=== PATIENT | male | born 1985 | race Caucasian/White ===

== ENCOUNTER 2019-01-30 05:38 | Outpatient (CLI) | payer BC ==
[~2019-01-30] VITALS: Ht 188 cm; Wt 140.6 kg
[2019-01-30] MEDS ORDERED: OMEP20TA7 PO (14:34)
[2019-01-30] MEDS ORDERED: PARO10TA81 PO (14:34)
== END 2019-01-30 14:36 | disposition home or self-care (01) ==
LOC: PREOP 05:38
PROVIDERS: ATTEND Surgery
DX: Z01.818 Encounter for other preprocedural examination (principal)

== ENCOUNTER → 2019-02-06 | Day surgery (SDC) | payer BC ==
[~2019-02-06] VITALS: Ht 188 cm; Wt 140.6 kg
[~2019-02-06] MED LIST: ACETAMINOPHEN 325 MG TABLET PO PRN; HURRICAINE EXT TUBE (BENZOCAINE) ONE; HURRICAINE EXT TUBE (BENZOCAINE) XX PRN; HYDROcodone/APAP 5 MG/325 MG (LORTAB) TAB PO PRN; LIDOCAINE JELLY 2% 6 ML SYRINGE MM PRN; LIDOCAINE JELLY 2% 6 ML SYRINGE ONE; MIDAZOLAM 2 MG/2 ML (VERSED) VIAL IVP ONE; MIDAZOLAM 2 MG/2 ML (VERSED) VIAL ONE; NS IV 500 ML 500 ML IV PRN; NS IV 500 ML 500 ML ONE; OMEP20TA7 PO; ONDANSETRON 4 MG/2 ML (SDV) Z0FRAN IVP PRN; PARO10TA81 PO; fentaNYL INJECTION 100 MCG/2 ML AMP IVP ONE; fentaNYL INJECTION 100 MCG/2 ML AMP ONE; morphine INJ 10 MG/ML 1ML (SYR OR VIAL) IVP PRN
--- OUTSIDE RECORDS SUMMARY | 2019-02-06 13:01 | XMS REPORT | Continuity of Care Document ---
Author Organization Unknown Address Unknown Allergies Active Description Code Type Severity Reaction Onset Reported/Identified Relationship to Patient Clinical Status Yes NO KNOWN DRUG ALLERGIES UNKNOWN NO KNOWN DRUG ALLERG Yes No Known Drug Allergies [id number] Drug Allergy Unknown N/A 01/30/2019 Medications There is no data. Problems Date Dx Coded Attending Type Code Diagnosis Diagnosed By 12/11/2018 CARLOS MANUEL MENA V70.0 ROUTINE GENERAL MEDICAL EXAMINATION AT A HEALTH CARE FACILITY 12/11/2018 CARLOS MANUEL MENA Z00.00 ENCOUNTER FOR GENERAL ADULT MEDICAL EXAMINATION WITHOUT ABNORMAL FINDINGS 12/11/2018 CARLOS MANUEL MENA 461.9 ACUTE SINUSITIS, UNSPECIFIED 12/11/2018 CARLOS MANUEL MENA J01.90 ACUTE SINUSITIS, UNSPECIFIED 12/11/2018 CARLOS MANUEL MENA V70.0 ROUTINE GENERAL MEDICAL EXAMINATION AT A HEALTH CARE FACILITY 12/11/2018 CARLOS MANUEL MENA Z00.00 ENCOUNTER FOR GENERAL ADULT MEDICAL EXAMINATION WITHOUT ABNORMAL FINDINGS 12/11/2018 CARLOS MANUEL MENA 461.9 ACUTE SINUSITIS, UNSPECIFIED 12/11/2018 CARLOS MANUEL MENA J01.90 ACUTE SINUSITIS, UNSPECIFIED 12/11/2018 CARLOS MANUEL MENA V70.0 ROUTINE GENERAL MEDICAL EXAMINATION AT A HEALTH CARE FACILITY 12/11/2018 CARLOS MANUEL MENA Z00.00 ENCOUNTER FOR GENERAL ADULT MEDICAL EXAMINATION WITHOUT ABNORMAL FINDINGS 01/30/2019 ELOY JUNG, ROCIO Ot Z01.818 ENCOUNTER FOR OTHER PREPROCEDURAL EXAMIN Procedures There is no data. Results Test Result Range BMP - 12/11/18 16:41 Anion Gap 14 6-14 BUN 14 mg/dL 5-25 Calcium 9.5 mg/dL 8.3-10.4 Chloride 107 mmol/L 95-114 CO2 22 mEq/L 22-33 Creat 1.16 mg/dL 0.50-1.50 eGFR 72 mL/min/1.73m2 >59 Glucose 122 mg/dL 70-110 Osmo 289 280-295 Potassium 4.1 mmol/L 3.5-5.3 Sodium 139 mmol/L 134-148 Lipid Panel - 12/11/18 16:41 C/HDL 5.9 3.7-6.7 Cholesterol 188 mg/dL 100-240 HDL 32 mg/dL 30-85 LDL-Calculated 123 mg/dL 0-100 Trig 167 mg/dL 35-160 VLDL 33 mg/dL 0-42 Encounters ACCT No. Visit Date/Time Discharge Status Pt. Type Provider Facility Loc./Unit Complaint [id number] 12/11/2018 17:11:00 12/11/2018 23:59:00 DIS Outpatient CARLOS MANUEL MENA [id number] 06/13/2017 12:33:00 06/13/2017 23:59:00 DIS Outpatient RADHA JASMINE [id number] 01/30/2019 05:38:00 01/30/2019 14:36:00 DIS Outpatient ROCIO LYONS MD [facility] PREOP EGD [id number] 04/25/2013 14:03:00 04/25/2013 23:59:59 CLS Outpatient [id number] 02/06/2019 12:55:00 ACT Outpatient ROCIO LYONS MD [facility] ENDO DYSPHAGIA [id number] 12/11/2018 17:11:00 Document Registration
--- NOTE | 2019-02-06 13:03 | Progress Note-Pre Operative ---
Pre-Operative Progress Note H&P Reviewed The H&P was reviewed, patient examined and no changes noted. Date Seen by Provider: Feb 06, 2019 Time Seen by Provider: 13:00 Date H&P Reviewed: Feb 06, 2019 Time H&P Reviewed: 13:00 Pre-Operative Diagnosis: GERD, regurg ROCIO LYONS MD Feb 06, 2019 13:03
--- NOTE | 2019-02-06 13:03 | Conscious Sedation/ASA ---
Conscious Sedation Pre-Proced Time 13:00 ASA Score 2 For ASA 3 and 4: Consider anesthesia and medical clearance. Also, for patients with a history of failed moderate sedation consider anesthesia. Airway Lungs Heart ASA score ASA 1: a normal healthy patient ASA 2: a patient with a mild systemic disease (mid diabetes, controlled hypertension, obesity ASA 3: a patient with a severe systemic disease that limits activity (angina, COPD, prior Myocardial infarction) ASA 4: a patient with an incapacitating disease that is a constant threat to life (CHF, renal failure) ASA 5: a moribund patient not expected to survive 24 hrs. (ruptured aneurysm) ASA 6: a declared brain- patient whose organs are being harvested. For emergent operations, add the letter E after the classification Mallampati Classification Grade 2 Sedation Plan Analgesia, Amnesia, Plan communicated to team members, Discussed options with patient/fam, Discussed risks with patient/fam The patient is an appropriate candidate to undergo the planned procedure, sedation, and anesthesia. The patient immediately re-assessed prior to indication. ROCIO LYONS MD Feb 06, 2019 13:02
--- NOTE | 2019-02-06 13:05 | Discharge Inst-Surgical ---
D/C Lap Instructions-ELOY Follow Up Activity as tolerated High Fiber Diet 25g or more per day Avoid Alcohol, Caffeine, Spicy [place] and Acid foods. Drink 64 fluid oz or more of fluids per day. Symptoms to Report: Fever over 101 degree F, Nausea/Vomiting If any problems/questions: Contact your physician or go to Emergency Room ROCIO LYONS MD Feb 06, 2019 13:05
[2019-02-06 13:30] VITALS: BP 117/65
[2019-02-06 14:55] VITALS: BP 121/73
--- NOTE | 2019-02-06 14:59 | Progress Note-Post Operative ---
Post-Operative Progess Note Surgeon (s)/Repairer Pump (s) Surgeon ROCIO LYONS MD Repairer Pump: none Pre-Operative Diagnosis GERD, regurg Post-Operative Diagnosis reflux esophagitis(stage 2), moderate HH(3cm), moderate gastritis. Procedure & Operative Findings Date of Procedure 02/06/19 Procedure Performed/Findings EGD with bx. Anesthesia Type cs Estimated Blood Loss Estimated blood loss (mL): minimal Specimens/Packing Specimens Removed ge jxn, antrum ROCIO LYONS MD Feb 06, 2019 14:59
[2019-02-06 15:15] VITALS: BP 121/76
[2019-02-06 15:25] VITALS: BP 121/76
== END | disposition home or self-care (01) ==
LOC: ENDO 12:55
PROVIDERS: ATTEND Surgery
DX: K21.0 Gastro-esophageal reflux disease with esophagitis (principal); K44.9 Diaphragmatic hernia without obstruction or gangrene; K29.50 Unspecified chronic gastritis without bleeding; J45.909 Unspecified asthma, uncomplicated; F41.9 Anxiety disorder, unspecified; Z79.899 Other long term (current) drug therapy